=== PATIENT | female | born 1965 | race Caucasian/White ===

== ENCOUNTER 2019-02-05 16:08 | Emergency (ER) | payer MEDICARE, MEDICAID ==
--- NOTE | 2019-02-05 18:02 | UC ---
Skin Complaint HPI - HPI Summary HPI Summary: 53 yo female presents, accompanied by contact agent, with red bump on her left flank. Pt is intellectually disabled and lives at a longterm, thus the history is provided by the staff member with her. He tells me that for about a week pt has had a red bump on her left flank that seems to be getting more red. Slightly tender. Denies fever, chills, injury. - History of Current Complaint Time Seen by Provider: 02/05/19 18:01 Stated Complaint: BUMP ON BACK Hx Obtained From: Patient, Family/Guide Winder Onset Severity: Mild Current Severity: Mild Pain Intensity: 3 Pain Scale Used: 0-10 Numeric - Allergy/Home Medications Allergies/Adverse Reactions: Allergies Allergy/AdvReac Type Severity Reaction Status Date / Time bee venom protein (honey bee) Allergy Unknown Verified 02/05/19 18:23 Reaction Details Penicillins Allergy Unknown Verified 02/05/19 18:23 Reaction Details thioridazine [From Mellaril] Allergy Unknown Verified 02/05/19 18:23 Reaction Details thiothixene [From Navane] Allergy Unknown Verified 02/05/19 18:23 Reaction Details Home Medications: Home Medications ALPRAZolam TAB* [Xanax TAB*] 0.25 mg PO BID PRN 02/05/19 [History Confirmed 02/14] Calcium Carbonate/Vitamin D3 [Oyster Shell Calcium 500+] 1 chw PO DAILY [History Confirmed 02/05/19] [place] Carbonate [[place] Carbonate 300 mg cap] 300 mg PO TID 02/05/19 [ History Confirmed 02/05/19] busPIRone TAB* [Buspar *] 30 mg PO BID 02/05/19 [History Confirmed 02/05/19] PMH/Surg Hx/FS Hx/Imm Hx - Additional Past Medical History Additional PMH: Intellectual disabled Psychological History: Anxiety, Depression, Schizophrenia - Surgical History Surgical History: Unable to Obtain/Confirm - Family History Known Family History: Positive: Non-Contributory - Social History Occupation: Disabled Lives: [place] Alcohol Use: None Substance Use Type: None Smoking Status (MU): Never Smoked Tobacco Review of Systems All Other Systems Reviewed And Are Negative: No Constitutional: Positive: Negative Skin: Positive: Other - Left flank red bump Respiratory: Positive: Negative Cardiovascular: Positive: Negative Neurovascular: Positive: Negative Neurological: Positive: Negative Psychological: Positive: Negative Physical Exam - Summary Physical Exam Summary: GENERAL: NAD. WDWN. No pain distress. SKIN: LEFT FLANK: 2.5cm area of mild erythema with slight induration. No open wound, drainage, streaking. CHEST: No accessory muscle use. Breathing comfortably and in no distress. CV: Pulses intact. Cap refill <2seconds NEURO: Alert. PSYCH: Age appropriate behavior. Triage Information Reviewed: Yes Vital Signs: Vital Signs: Temp Pulse Resp BP Pulse Ox 98.8 F 75 16 138/78 99 02/05/19 18:11 02/05/19 18:11 02/05/19 18:11 02/05/19 18:11 02/05/19 18:11 Vital Signs Reviewed: Yes Course/Dx - Course Course Of Treatment: Skin abscess to left flank. Does not appear ready for I&D today. Will start her on Bactrim and if area comes to a "head' or enlarges - advised to return for I&D - Diagnoses Provider Diagnosis: Skin abscess Discharge ED - Sign-Out/Discharge Documenting (check all that apply): Patient Departure All imaging exams completed and their final reports reviewed: No Studies - Discharge Plan Condition: Stable Disposition: HOME Prescriptions: Sulfamethox/Trimethoprim DS* [Bactrim DS 800/160 TAB*] 1 tab PO BID #14 tab Patient Education Materials: Abscess (ED) Referrals: Daniela Bronson MD [Primary Care Provider] - Additional Instructions: If you develop a fever, shortness of breath, chest pain, new or worsening symptoms - please call your PCP or go to the ED immediately. Take the antibiotic as directed. The area on her back may become larger and more firm - if this happens, please return to have this drained - Billing Disposition and Condition Condition: STABLE Disposition: Home
[2019-02-05 18:14] VITALS: BP 138/78
== END 2019-02-05 18:29 | disposition home or self-care (01) ==
LOC: UCEAST 16:08
DX: L02.219 Cutaneous abscess of trunk, unspecified (principal); F79 Unspecified intellectual disabilities; F32.9 Major depressive disorder, single episode, unspecified; F41.9 Anxiety disorder, unspecified; F20.9 Schizophrenia, unspecified; Z79.899 Other long term (current) drug therapy; Z88.0 Allergy status to penicillin; Z88.8 Allergy status to other drugs, medicaments and biological substances; Z91.030 Bee allergy status
CPT/HCPCS: 99212; G0463